=== PATIENT | male | born 1980 | race Caucasian/White ===

== ENCOUNTER 2021-04-12 11:18 | Observation (INO) ==
[2021-04-12] MEDS ORDERED: LACTATED RINGERS 1,000 ML IV ONE (11:45)
[2021-04-12] MEDS ORDERED: HYDROmorphone 1 MG/ML SYRINGE IV PRN (11:45)
[2021-04-12] MEDS ORDERED: LACTATED RINGERS 1,000 ML IV SCH ×2 (12:00→14:15)
[2021-04-12] MEDS ORDERED: PIPERACILLIN SODIUM/TAZOBACTAM 3.375 GM in DEXTROSE 5% IN WATER 50 ML IV SCH (12:00)
[2021-04-12] MEDS ORDERED: IPRATROPIUM/ALBUTEROL 3 ML AMPUL.NEB NEB PRN ×2 (12:23→14:08)
[2021-04-12] MEDS ORDERED: SCOPOLAMINE 1 PATCH PATCH TOPICAL PRN ×2 (12:23→15:54)
[2021-04-12 12:27] LABS: POC INR 1.2 (0.8-1.2); POC Pro Time 13.7 sec (11.9-14.5)
[2021-04-12 12:29] LABS: POC Blood Urea Nitrogen 16 mg/dL (6-20); POC CO2 22 mmol/L (22-30); POC Calcium, Ionized 1.16 mmEq/L (1.16-1.32); POC Chloride 106 mEq/L (96-108); POC Creatinine 1.3 mg/dL (0.6-1.2); POC Glucose, Random 91 mg/dL (70-105); POC Hematocrit 43 % (41-55); POC Sodium 141 mEq/L (133-145)
[2021-04-12 13:24] LABS: Basophils # (Auto) 0.04 K/mcL (0.00-0.30); Basophils % (Auto) 0.6 % (0.0-2.0); Eosinophils # (Auto) 0.04 K/mcL (0.00-0.70); Eosinophils % (Auto) 0.6 % (0.0-7.0); Hematocrit 43.5 % (40.1-51.0); Hemoglobin 14.6 g/dL (13.7-17.5); Lymphocytes # (Auto) 2.02 K/mcL (1.50-4.80); Lymphocytes % (Auto) 28.8 % (15.5-49.0); Mean Cell Volume 88.4 fL (80.0-100.0); Mean Corpuscular HGB Conc 33.6 g/dL (31.0-36.0); Mean Platelet Volume 10.6 fL (7.4-10.4); Monocytes # (Auto) 0.58 K/mcL (0.10-0.90); Monocytes % (Auto) 8.3 % (1.0-12.0); Neutrophils % (Auto) 61.7 % (38.0-78.0); Platelet Count 255 K/mcL (140-440); RBC 4.92 M/mcL (4.63-6.08); Red Cell Distribution Width 12.8 % (11.5-14.5)
[2021-04-12] MEDS ORDERED: LIDOCAINE HCL/PF 100 MG/5 ML SYRINGE IV ONE (13:44)
[2021-04-12] MEDS ORDERED: MIDAZOLAM 5 MG/5 ML VIAL ONE (13:44)
[2021-04-12] MEDS ORDERED: ONDANSETRON 4 MG/2 ML VIAL ONE (13:44)
[2021-04-12] MEDS ORDERED: KETAMINE 50 MG/ML Syringe (ANEST) IV ONE (13:44)
[2021-04-12] MEDS ORDERED: DEXAMETHASONE 10 MG/ML VIAL ONE (13:44)
[2021-04-12] MEDS ORDERED: fentaNYL 100 MCG/2 ML VIAL IV ONE (13:44)
[2021-04-12] MEDS ORDERED: PROPOFOL 200 MG/20 ML VIAL IV ONE (13:44)
[2021-04-12] MEDS ORDERED: GLYCOPYRROLATE 0.2 MG/ML VIAL IV ONE (13:44)
[2021-04-12] MEDS ORDERED: MAGNESIUM SULFATE 2 GM/50 ML BAG IV ONE (13:44)
[2021-04-12] MEDS ORDERED: MEPERIDINE 50 MG/ML VIAL IM PRN (14:08)
[2021-04-12] MEDS ORDERED: ACETAMINOPHEN 1,000 MG/100 ML BAG IV ONE (14:08)
[2021-04-12] MEDS ORDERED: BENZOCAINE/MENTHOL 1 LOZENGE PO PRN (14:08)
[2021-04-12] MEDS ORDERED: KETOROLAC 30 MG/ML VIAL IV PRN (14:08)
[2021-04-12] MEDS ORDERED: ONDANSETRON 4 MG/2 ML VIAL IV PRN ×2 (14:08→17:36)
[2021-04-12] MEDS ORDERED: PROMETHAZINE 25 MG/ML VIAL IM PRN (14:08)
[2021-04-12] MEDS ORDERED: METHOCARBAMOL 1,000 MG/10 ML VIAL IV PRN (14:08)
[2021-04-12] MEDS ORDERED: HYDROmorphone 0.5 MG/0.5 ML SYRINGE IV PRN (14:08)
[2021-04-12] MEDS ORDERED: fentaNYL 100 MCG/2 ML VIAL IV PRN (14:08)
[2021-04-12] MEDS ORDERED: LORazepam 2 MG/ML VIAL IV PRN (14:08)
--- NOTE | 2021-04-12 14:26 | Brief Operative Note ---
Brief Operative Note Date of procedure: 04/12/21 Pre-op diagnosis: PERIRECTAL ABSCESS Post-op diagnosis: other (PERIRECTAL ABSCESS;LEFT) Procedure: INCISION AND DRAINAGE PERIRECTAL ABSCESS Grafts/Implants: No (/" JONN DRAIN) Anesthesia: GLMA Findings: LARGE LEFT PERIRECTAL ABSCESS Complications: none Surgeon: Kalli Greenwood Specimens Removed/Pathology: other (DRAINAGE SENT FOR C&S) Condition: stable Disposition: PACU
[2021-04-12] MEDS: MEPERIDINE 25 MG/ML VIAL IV PRN ×2 (14:57→15:07)
[2021-04-12] MEDS ORDERED: oxyCODONE HCL 5 MG TABLET PO PRN (15:54)
[2021-04-12] MEDS: HYDROmorphone 1 MG/ML SYRINGE IV PRN (16:32)
[2021-04-12] MEDS: LACTATED RINGERS 1,000 ML IV SCH (16:39)
[2021-04-12] MEDS ORDERED: ALPRAZolam 0.5 MG TABLET PO PRN (16:54)
[2021-04-12] MEDS: PIPERACILLIN SODIUM/TAZOBACTAM 3.375 GM in DEXTROSE 5% IN WATER 50 ML IV SCH (17:26)
[2021-04-12] MEDS ORDERED: diphenhydrAMINE 25 MG CAPSULE PO ONE (19:48)
[2021-04-12] MEDS ORDERED: HYDROCORTISONE CRM 1% TUBE 30GM TOPICAL PRN (19:53)
[2021-04-12] MEDS ORDERED: ACETAMINOPHEN 1,000 MG/100 ML BAG IV SCH (20:00)
[2021-04-12] MEDS: diphenhydrAMINE 50 MG/ML VIAL IV PRN (21:17)
[2021-04-12] MEDS: ACETAMINOPHEN 1,000 MG/100 ML BAG IV SCH (21:18)
[2021-04-13] MEDS: PIPERACILLIN SODIUM/TAZOBACTAM 3.375 GM in DEXTROSE 5% IN WATER 50 ML IV SCH ×3 (00:20→14:44)
[2021-04-13] MEDS: HYDROmorphone 1 MG/ML SYRINGE IV PRN ×2 (00:24→05:35)
[2021-04-13] MEDS: LACTATED RINGERS 1,000 ML IV SCH ×3 (00:52→14:44)
[2021-04-13] MEDS: diphenhydrAMINE 50 MG/ML VIAL IV PRN (01:58)
[2021-04-13] MEDS: ACETAMINOPHEN 1,000 MG/100 ML BAG IV SCH ×2 (02:38→09:07)
[2021-04-13 07:13] LABS: Basophils # (Auto) 0.01 K/mcL (0.00-0.30); Basophils % (Auto) 0.1 % (0.0-2.0); Eosinophils # (Auto) 0 K/mcL (0.00-0.70); Eosinophils % (Auto) 0 % (0.0-7.0); Hematocrit 38.3 % (40.1-51.0); Hemoglobin 13.2 g/dL (13.7-17.5); Lymphocytes # (Auto) 1.22 K/mcL (1.50-4.80); Lymphocytes % (Auto) 14.9 % (15.5-49.0); Mean Cell Volume 88.9 fL (80.0-100.0); Mean Corpuscular HGB Conc 34.5 g/dL (31.0-36.0); Mean Platelet Volume 10.4 fL (7.4-10.4); Monocytes # (Auto) 0.48 K/mcL (0.10-0.90); Monocytes % (Auto) 5.9 % (1.0-12.0); Neutrophils % (Auto) 79.1 % (38.0-78.0); Platelet Count 239 K/mcL (140-440); RBC 4.31 M/mcL (4.63-6.08); Red Cell Distribution Width 12.5 % (11.5-14.5); WBC 8.2 K/mcL (4.5-11.0)
--- NOTE | 2021-04-13 11:37 | Discharge Summary ---
Discharge Provider Provider Patient information: Note initiated : 04/13/21 at 11:32 am Service Date, if different from initiated Date: [] Patient: Mikael Olivares 41 y/o M admitted on 04/12/21 for Destini-rectal abscess. Chief Complaint: [] Date of admission: 04/12/21 11:31 Discharge date: 04/13/21 Primary care physician: Misael Hernandez DO Admitting clinician: Kalli Greenwood Attending physician on admission: Kalli Greenwood Attending physician on discharge: Kalli Greenwood Discharging clinician: Kalli Greenwood COURSE Hospital Course Hospital course: 41-year-old male who was admitted yesterday with a large left-sided perirectal abscess. He had incision and drainage and curettage of the abscess tract without difficulty. He is feeling much better. He has been afebrile and has only a small amount of bloody drainage. White blood count is 8000. Patient is stable for discharge home. He will be on antibiotics for a minimum of 2 weeks. Discharge diagnosis: Perirectal abscess Reason for admission: Perirectal abscess Procedures: Incision drainage and curettage of perirectal abscess Pertinent studies/significant findings: None Complications: None Time Spent with Patient Time attestation: Total time spent providing and/or coordinating discharge services: Physical Examination Vital Signs Vital signs: Temp Pulse Resp BP Pulse Ox 97.6 F 55 L 18 101/62 96 04/13/21 09:52 04/13/21 08:00 04/13/21 08:00 04/13/21 08:00 04/13/21 08:00 Head Head exam IM: Present atraumatic, normal inspection and normocephalic Neck Neck exam: no masses, no bruits, trachea midline and no lymphadenopathy Cardiovascular Cardiovascular exam IM: Present normal rate and rhythm, RRR, +S1 and +S2; Absent gallop or JVD Respiratory Respiratory exam: normal expansion, normal respiratory effort and clear to auscultation Abdomen Abdomen: Present soft and non tender; Absent masses or guarding Rectum Rectum: Present normal sphincter tone and other (Tender mass left perianal space with drainage) Integumentary Integumentary: Present no rash, no growths and no abnormal pigmentation Neurologic Neurologic: Present normal coordination and normal sensation Musculoskeletal Musculoskeletal: Present normal gait and normal posture Psychiatric Psychiatric: Present oriented to time, oriented to person, oriented to place, speech is normal, memory intact and other Discharge Plan Patient/Caregiver Discharge Instructions Activity: increase activity as tolerated and resume usual activities as tolerated Diet: Regular Diet Prescriptions: New ciprofloxacin HCl [ciprofloxacin HCl] 500 MG tablet 500 mg PO BID Qty: 40 0RF oxycodone-acetaminophen [Endocet] 10-325 mg Tablet 1 tab PO Q4H PRN (Reason: Pain) Qty: 40 0RF metronidazole 500 mg tablet 500 mg PO TID Qty: 40 0RF Continued [id number] [Antibiotic Cream W/Lidocaine] topical 0RF valacyclovir 1 gram tablet 1,000 mg PO BID Qty: 14 0RF Discontinued sulfamethoxazole PO BID 0RF Follow Up Plan Follow up with: Kalli Greenwood MD [Physician] - (Office appointment in 2 weeks) Patient Disposition: Home, Self-Care Plan of Treatment: Continue antibiotics x2 weeks Leave drain in place x2 weeks Office visit in 2 weeks Prognosis: Good Rehab Potential: Good I certify that the patient requires SNF services: No Overall status at discharge: patient is progressing back to baseline Discharge Orders: Discharge Order (Routine); Ordered 04/13/21 Ordered By: Kalli Greenwood Pending Pending Pending: Resuscitation Status Resuscitate (Full Code) Diet Regular Diet Start SunApr 12 1554 Diphenhydramine HCl (Diphenhydramine 50 Mg/Ml Vial) 25 mg IV Q4HP PRN PRN Reason: Allergic Symptoms Last Admin: 04/13/21 01:58 Dose: 25 mg Documented by: Admin: 04/12/21 21:17 Dose: 25 mg Documented by: WERNER Hydromorphone HCl (Hydromorphone 1 Mg/Ml Syringe) 1 mg IV Q2HP PRN; Protocol PRN Reason: Per Pain Protocol Last Admin: 04/13/21 05:35 Dose: 1 mg Documented by: Admin: 04/13/21 00:24 Dose: 1 mg Documented by: Admin: 04/12/21 16:32 Dose: 1 mg Documented by: ELIJAH Lactated Ringer's (Lactated Ringers) 1,000 mls @ 150 mls/hr IV .Q6H40M [facility] Last Admin: 04/13/21 05:46 Dose: 150 mls/hr Documented by: Infusion: 04/13/21 03:27 Dose: 150 mls/hr Documented by: Admin: 04/13/21 00:52 Dose: Not Given Documented by: Infusion: 04/13/21 00:51 Dose: 150 mls/hr Documented by: Infusion: 04/12/21 20:43 Dose: 0 mls/hr Documented by: Admin: 04/12/21 16:39 Dose: 150 mls/hr Documented by: ELIJAH Piperacillin Sod/Tazobactam (Sod 3.375 gm/ Dextrose) 50 mls @ 100 mls/hr IV Q6H ELYSSA; Protocol Last Infusion: 04/13/21 06:10 Dose: 0 mls/hr Documented by: MARIA EUGENIA Admin: 04/13/21 05:36 Dose: 100 mls/hr Documented by: Infusion: 04/13/21 01:00 Dose: 100 mls/hr Documented by: Admin: 04/13/21 00:20 Dose: 100 mls/hr Documented by: Infusion: 04/12/21 18:38 Dose: 0 mls/hr Documented by: Admin: 04/12/21 17:26 Dose: 100 mls/hr Documented by: ELIJAH Acetaminophen (Ofirmev) 1,000 mg in 100 mls @ 200 mls/hr IV Q6H ELYSSA Stop: 04/13/21 14:30 Last Infusion: 04/13/21 09:40 Dose: 0 mls/hr Documented by: MARIA EUGENIA Admin: 04/13/21 09:07 Dose: 200 mls/hr Documented by: MARIA EUGENIA Infusion: 04/13/21 03:10 Dose: 0 mls/hr Documented by: Admin: 04/13/21 02:38 Dose: 200 mls/hr Documented by: Infusion: 04/12/21 22:55 Dose: 0 mls/hr Documented by: Admin: 04/12/21 21:18 Dose: 200 mls/hr Documented by: WERNER Ondansetron HCl (Ondansetron 4 Mg/2 Ml Vial) 4 mg IV Q4HP PRN PRN Reason: Nausea And Vomiting Last Admin: 04/12/21 18:00 Dose: 4 mg Documented by: ELIJAH Shift Summary 04/13/21 05:16 Shift Summary by Iesha Powers Primary Diagnosis: Destini-rectal Abscess Registration Status: OBS Day of Hospitalization: 04/12 Date of Surgery (if applicable): I&D 04/12 Pertinent Medical Dx/Issues (may be more than one): Interventions (O2, wounds, diuresis, etc): Guicho drain to sacrum. Dressing appears to be CDI. Vital Signs with Trends: VSS on RA. Meds (abo, pain, BP, etc): Diluadid, OFIRMEV, Benadryl, Zosyn Lines/Tubes: L hand IV running LR 150mls/Hr Oxygen needs (home use vs. current use): None Lab/Rad results: Date of last BM: Unknown Elimination: Continent of B&B. SBA to help manage lines to and from bathroom. Recommendations/questions for MD (DC Nunn? DC CM? PICC needed?): Trends (is the patient improving?): Activity: SBA to help manage lines to and from bathroom frequently on this shift. Expected date of discharge: TBD Discharge Plan (needs, disposition, etc): TBD Additional Info: A/o x4. Pt c/o itchiness to face and throughout body early on this shift. Called Dr. Greenwood and orders were given to give Hydrocortisone cream and Benadryl IV for the itchiness. No redness or hive-like lesions noted on this shift. Oxycodone was d/c related to possible allergic reaction. Benadryl IV given x2 on this shift with good results. Diluadid IV x1 for sacral pain with good results. Initialized on 04/13/21 05:16 - END OF NOTE
--- NOTE | 2021-04-27 13:49 | Operative Note ---
DATE OF OPERATION: 04/12/2021 PREOPERATIVE DIAGNOSIS: Perirectal abscess. POSTOPERATIVE DIAGNOSIS: Perirectal abscess, left buttock. PROCEDURE: Incision and drainage of perirectal abscess. SURGEON: Kalli Greenwood M.D. FINDINGS: Large left perirectal abscess. DESCRIPTION OF PROCEDURE: Under general anesthesia, the patient was placed in high lithotomy position. The perianal space and perineum were prepped and draped. An 18-gauge needle was used to aspirate part of the abscess cavity. This fluid was sent for culture and sensitivity. Incision was then made in the bulge and dome of the abscess. Finger was placed and fractionation of all loculations was carried out. It extended into the low perirectal space. A 1/4-inch Bricelyn drain was placed and a counterincision was made. The drain was then sutured to itself to prevent dislodgement. Copious irrigation was carried out. The patient tolerated the procedure well. Dressing was placed along with surgical briefs. The patient was taken out of lithotomy and placed in supine position. He was awakened and taken to the postanesthetic care unit in satisfactory condition. LCS:erika Job ID: [id number] Doc ID: [id number] Kalli Greenwood M.D.
== END 2021-04-13 14:55 | disposition home or self-care (01) ==
LOC: MEDSUR
PROVIDERS: ADMIT Family Medicine Adult Medicine; ATTEND Family Medicine Adult Medicine